=== PATIENT | female | born 1955 | race Caucasian/White ===

== ENCOUNTER 2017-03-31 07:29 | Emergency (ER) | payer OTHER | END 2017-03-31 08:30 | disposition home or self-care (01) | LOC: D.ER 07:29 | DX: S90.512A Abrasion, left ankle, initial encounter (principal); W45.8XXA Other foreign body or object entering through skin, initial encounter; Y93.89 Activity, other specified; Y92.012 Bathroom of single-family (private) house as the place of occurrence of the external cause; Z48.02 Encounter for removal of sutures ==